=== PATIENT | female | born 1980 | race African-American/Black ===

== ENCOUNTER 2018-09-22 00:02 | Inpatient (IN) | payer MEDICAID, OTHER ==
[~2018-09-22] VITALS: Ht 165.1 cm; Wt 66.7 kg
[2018-09-22] MEDS ORDERED: SODIUM CHLORIDE 0.9% 1,000 ML IV ONE (03:55)
[2018-09-22 04:18] LABS: CLARITY URINE CLEAR (CLEAR); COLOR URINE YELLOW (YELLOW); KETONES URINE NEGATIVE (NEGATIVE); LEUKOCYTE ESTERASE URINE NEGATIVE (NEGATIVE); NITRITE URINE NEGATIVE (NEGATIVE); OCCULT BLOOD URINE NEGATIVE (NEGATIVE); PH URINE 5.5 (4.5-8.0); PROTEIN URINE NEGATIVE (NEGATIVE); SPECIFIC GRAVITY URINE 1.019 (1.005-1.030); UROBILINOGEN URINE 0.2 E.U./dL (0.2-1.0)
[2018-09-22 04:21] LABS: MEAN CORPUSCULAR HEMOGLOBIN 16.7 pg (28.0-32.0); MEAN PLATELET VOLUME 8.7 fl (7.4-10.4); PLATELET 117 x1000/uL (130-400); RED BLOOD CELL COUNT 3.37 mill/uL (4.2-5.4); RED CELL DISTRIBUTION WIDTH 21.3 % (11.6-14.6)
[2018-09-22 04:23] LABS: CHLORIDE 110 mEq/L (98-107)
[2018-09-22 04:29] LABS: TOTAL IRON BINDING CAPACITY 564 ug/dL (250-450)
[2018-09-22 04:41] LABS: HEMATOCRIT. 19.6 % (36.0-48.0); HEMOGLOBIN. 5.7 g/dL (12.0-16.0)
[2018-09-22 05:03] LABS: ATYPICAL LYMPHOCYTES 1
[2018-09-22 05:05] LABS: PLATELET ESTIMATE SLIGHTLY DECREASED
[2018-09-22 11:50] LABS: MEAN CORPUSCULAR HEMOGLOBIN 16.7 pg (28.0-32.0); MEAN CORPUSCULAR VOLUME 57.4 fL (81.0-99.0); MEAN PLATELET VOLUME 9.3 fl (7.4-10.4); PLATELET 105 x1000/uL (130-400); RED BLOOD CELL COUNT 3.05 mill/uL (4.2-5.4); RED CELL DISTRIBUTION WIDTH 21.5 % (11.6-14.6)
[2018-09-22 11:57] LABS: CHLORIDE 113 mEq/L (98-107)
[2018-09-22 11:58] LABS: HEMATOCRIT. 17.5 % (36.0-48.0); HEMOGLOBIN. 5.1 g/dL (12.0-16.0); INR 1.1; PROTHROMBIN TIME 11.1 sec (9.1-11.1)
[2018-09-22] MEDS ORDERED: ONDANSETRON HCL 4MG/2ML INJ IV PRN (12:30)
[2018-09-22] MEDS ORDERED: ACETAMINOPHEN 325MG TABLET PO PRN (12:30)
[2018-09-22 12:37] LABS: NUCLEATED RED BLOOD CELLS 1 /100 WBC; PLATELET ESTIMATE DECREASED
[2018-09-22 18:49] LABS: HEMATOCRIT. 22.7 % (36.0-48.0); HEMOGLOBIN. 7.1 g/dL (12.0-16.0); MEAN CORPUSCULAR HEMOGLOBIN 19.8 pg (28.0-32.0); MEAN CORPUSCULAR VOLUME 63.8 fL (81.0-99.0); MEAN PLATELET VOLUME 9.4 fl (7.4-10.4); PLATELET 90 x1000/uL (130-400); RED BLOOD CELL COUNT 3.56 mill/uL (4.2-5.4); RED CELL DISTRIBUTION WIDTH 28.8 % (11.6-14.6)
[2018-09-22 19:02] LABS: TOTAL IRON BINDING CAPACITY 493 ug/dL (250-450)
[2018-09-22 19:36] LABS: PLATELET ESTIMATE DECREASED
[2018-09-22 20:10] VITALS: BP 115/58
[2018-09-22 21:34] VITALS: BP 115/68
[2018-09-22] MEDS ORDERED: EPOETIN ALFA 10000UNITS/ML VIAL SUBCUT SCH (22:00)
[2018-09-23] VITALS: BP 122/63
[2018-09-23 06:50] LABS: HEMATOCRIT. 23.7 % (36.0-48.0); HEMOGLOBIN. 7.4 g/dL (12.0-16.0); MEAN CORPUSCULAR HEMOGLOBIN 19.8 pg (28.0-32.0); MEAN CORPUSCULAR VOLUME 63.8 fL (81.0-99.0); MEAN PLATELET VOLUME 8.7 fl (7.4-10.4); PLATELET 90 x1000/uL (130-400); RED BLOOD CELL COUNT 3.72 mill/uL (4.2-5.4); RED CELL DISTRIBUTION WIDTH 28.6 % (11.6-14.6)
[2018-09-23 07:01] LABS: CHLORIDE 111 mEq/L (98-107)
[2018-09-23 08:00] VITALS: BP 110/60
[2018-09-23 11:07] VITALS: BP 110/60
[2018-09-23 12:00] VITALS: BP 102/53
[2018-09-23 15:16] LABS: PLATELET ESTIMATE DECREASED
== END 2018-09-23 15:15 | disposition home or self-care (01) | DRG 532 ==
LOC: ER 00:02 → 5WST 04:32 → EDBEDREQ 04:40 → EDBEDREQSVC 04:40 → EDBEDREQTM 04:40 → ENRESERV 18:07
PROVIDERS: ADMIT Internal Medicine; ATTEND Internal Medicine
PROC: 30233N1 Transfusion of Nonautologous Red Blood Cells into Peripheral Vein, Percutaneous Approach (ICD-10-PCS; principal; 2018-09-22)
DX: D25.9 Leiomyoma of uterus, unspecified (principal); D61.818 Other pancytopenia; E87.8 Other disorders of electrolyte and fluid balance, not elsewhere classified; E83.51 Hypocalcemia; D50.9 Iron deficiency anemia, unspecified
CPT/HCPCS: 36415; 76830; 76856; 80048; 83540; 83550; 85044; 86850; 86900; 86920; 93970; 96360; 96361; 99285; J0885; J7030; P9016